=== PATIENT | male | born 1990 | race Caucasian/White ===

== ENCOUNTER 2018-01-13 17:42 | Inpatient (IN) | payer MEDICAID ==
[2018-01-13 18:45] LABS: BASO # 0.1 K/uL (0.0-0.2); BASO % 0.9 % (0.0-2.0); EOS # 0.4 K/uL (0.0-0.7); EOS % 4.5 % (0.0-4.0); LYMPH # 3.1 K/uL (1.0-4.3); MEAN CELL VOLUME 78.4 fL (80.0-94.0); MEAN CORPUSCULAR HEMOGLOBIN 26.5 pg (27.0-31.0); MEAN CORPUSCULAR HGB CONC 33.8 g/dL (33.0-37.0); MEAN PLATELET VOLUME 7.8 fL (7.2-11.7); MONO # 0.8 K/uL (0.0-0.8); MONO % 9.4 % (0.0-10.0); NEUT % 48.2 % (50.0-75.0); NRBC % 0.2 % (0.0-2.0); RBC 4.53 Mil/uL (4.40-5.90); RED CELL DISTRIBUTION WIDTH 15.3 % (11.5-14.5); WHITE BLOOD COUNT 8.2 K/uL (4.8-10.8)
[2018-01-13 19:07] LABS: ALBUMIN 4.1 g/dL (3.5-5.0); ALT/SGPT 17 U/L (21-72); AST/SGOT 41 U/L (17-59); BLOOD UREA NITROGEN 12 mg/dL (9-20); GFR AFRICAN-AMERICAN > 60; GFR NON-AFRICAN AMERICAN > 60
[2018-01-13 20:30] LABS: URINE BILIRUBIN NEGATIVE (NEGATIVE); URINE BLOOD 1+ (NEGATIVE); URINE CLARITY Clear (Clear); URINE COLOR Yellow (YELLOW); URINE GLUCOSE (UA) NORMAL (Normal); URINE LEUKOCYTE ESTERASE NEG Leu/uL (Negative); URINE PROTEIN NEGATIVE (NEGATIVE); URINE UROBILINOGEN NORMAL mg/dL (0.2-1.0)
[2018-01-13 20:31] LABS: SQUAMOUS EPITHIAL 5 /hpf (0-5)
[2018-01-13 20:45] LABS: BARBITURATES, UR NEGATIVE (NEGATIVE); BENZODIAZEPINES, UR NEGATIVE (NEGATIVE); PHENCYCLIDINE, UR NEGATIVE (NEGATIVE)
[2018-01-13 20:49] LABS: OPIATES, UR POSITIVE (NEGATIVE)
--- NOTE | 2018-01-13 21:43 | C.PDOC ---
History Of Present Illness 27yo male (prescreened), presents to ER requesting detox from heroin use. Patient states he uses 2 bundles of heroin IV daily and also occasional alcohol. He denies any medical complaints. He denies any suicidal or homicidal ideation. Time Seen by Provider: 01/13/18 18:15 Chief Complaint (Nursing): Substance Abuse History Per: Patient History/Exam Limitations: no limitations Onset/Duration Of Symptoms: Days Modifying Factor(s): Narcotics Past Medical History Reviewed: Historical Data, Nursing Documentation, Vital Signs Vital Signs: Last Vital Signs Temp 97.7 F 01/13/18 21:36 Pulse 97 H 01/13/18 21:36 Resp 18 01/13/18 21:36 BP 104/67 01/13/18 21:36 Pulse Ox 99 01/13/18 21:44 - Medical History PMH: Anxiety, Depression Denies: Diabetes, Hepatitis, HIV, HTN, Seizures, Sexually Transmitted Disease Surgical History: No Surg Hx - [facility] DETOXIFICATION SERVICES FOR SUBSTANCE ABUSE TREATMENT (11/08/15) Family History: States: Unknown Family Hx - Social History Hx Tobacco Use: Yes Hx Alcohol Use: Yes Hx Substance Use: Yes (IVDU heroin and cocaine) - Immunization History Hx Tetanus Toxoid Vaccination: No Hx Influenza Vaccination: No Review Of Systems Except As Marked, All Systems Reviewed And Found Negative. Constitutional: Negative for: Fever, Chills Cardiovascular: Negative for: Chest Pain Psych: Negative for: Suicidal ideation Physical Exam - Physical Exam Appears: Non-toxic, No Acute Distress Skin: Warm, Dry Head: Atraumatic, Normacephalic Neck: Normal ROM, Supple Chest: Symmetrical Cardiovascular: Rhythm Regular Respiratory: Normal Breath Sounds, No Wheezing Gastrointestinal/Abdominal: Soft, No Tenderness Back: Normal Inspection Extremity: Normal ROM, No Deformity, Other (healing track rankin noted to bilateral forearms) Neurological/Psych: Oriented x3 ED Course And Treatment - Laboratory Results Result Diagrams: 01/13/18 18:39 01/13/18 18:39 O2 Sat by Pulse Oximetry: 99 (RA) Pulse Ox Interpretation: Normal Progress Note: Patient seen and evaluated by crisis team. Labs reviewed and within normal limits; patient medically cleared for admission. Disposition - Disposition Disposition: HOSPITALIZED Disposition Time: 20:50 Condition: STABLE - Clinical Impression Clinical Impression: Drug dependence - Scribe Statement The provider has reviewed the documentation as recorded by the Scribe (Celeste Ya) Provider Attestation: All medical record entries made by the Johnyibe were at my direction and personally dictated by me. I have reviewed the chart and agree that the record accurately reflects my personal performance of the history, physical exam, medical decision making, and the department course for this patient. I have also personally directed, reviewed, and agree with the discharge instructions and disposition.
--- NOTE | 2018-01-13 22:28 | PCM.BM ---
<GuanakitoRuthy - Last Filed: 01/13/18 22:27> Treatment Plan Problems - Problems identified on initial assessmt Potential for alcohol withdrawal Date Initiated: 01/13/18 Time Initiated: 22:27 Assessment reference: NA Priority: 1 Potential for opiate withdrawal Date Initiated: 01/13/18 Time Initiated: 22:27 Assessment reference: NA Status: Active Priority: 2 Treatment assets and liabiliti Patient Assests: cooperative, ADL independent, negotiates basic needs, cognitively intact Patient Liabilities: poor support system, substance abuse (ETOH,opiates) - Milieu Protocol Maintain good personal hygiene: daily Encourage regular showers, daily Remind patient to perform daily oral care, daily Assist patient to perform ADL's Conduct patient checks and document Observation sheet: Q15 minutes Maintain personal safety: every shift Educate patient to report safety concerns to staff, every shift Monitor environment for contraband/sharps Medication safety: Monitor for expected outcome, potential side effects: every shift, Assess barriers to learning: every shift, Assess readiness for medication education: every shift <Haylie Mae - Last Filed: 01/14/18 23:26> - Diagnosis (1) Opiate dependence Status: Acute Interventions: 01/14/18 23:26 * Assess 7x/week regarding severity of withdrawal * Educate regarding risks, benefits, side effects and alternatives of medications * Use Motivational Interviewing for abstinence * Use CBT for relapse prevention * Medication management for withdrawal symptoms * Encourage medication assisted treatment * <Marizol Arambula - Last Filed: 01/15/18 11:43> Family Contact Family involvement: Famliy/SO not involved - Goals for Treatment Patient goals for treatment: Complete detox and discuss aftercare options with counseling staff. Discharge/Continuing Care - Education Needs Education Needs: Patient Medication, Patient Diagnosis/Disease Process, Patient Coping Skills, Patient Anger Management skills, Patient Placement options, Patient Community resources - Discharge Discharge Criteria: No longer exhibiting s/s of withdrawal, Reduction of target symptoms Discharge to:: Home - Treatment Team Participation Patient/Family/SO Statement: 01/15/18 11:43 "I don't know what I wanna do..." Discussed with Family/SO: No Was Patient/Family/SO present at Treatment Team Meeting: Yes
[2018-01-14] MEDS ORDERED: Benzocaine/Menthol (Cepacol) Lozenge PO PRN (00:18)
[2018-01-14] MEDS ORDERED: Aluminum Hydroxide/Magnesium Hydroxide Susp (30 mL) PO PRN (00:18)
[2018-01-14 06:10] VITALS: O2SAT 100
[2018-01-14] MEDS: Multiple Vitamins Tab PO SCH (09:53)
--- NOTE | 2018-01-14 11:49 | PCM.PSYCH ---
Initial Psychiatric Evaluation - Initial Psychiatric Evaluation Type of Admission: Voluntary Legal Status: Capacity Chief Complaint (in patient's own words): "I'm withdrawing" History of Present Illness and Precipitating Events: The patient is seen, chart reviewed and case discussed. Heis known from previous admission. This is a 27-year-old male, single, no child, living with his girlfriend in [place], unemployed. The patient admits to using 15 to 30 bags of heroin IV, for the past 5 years. He says he relapsed last year when he lost his brother. He also uses cocaine and cannabis on and off. He also drinks alcohol which has increased and now almost one lt. daily. He denies DTs or seizures. No history of methadone or Suboxone. He says he is interested in rehabilitation. He has an extensive legal history with many arrests for selling, asault and even contempt to court. Past psychiatric history: He claims he was suffering from anxiety and diagnosed with ADHD. He was given Adderall and Xanax in the past. He was admitted once for aggressive bhv Family psychiatric history: Denies Medical history: Denies Current Medications: Active Medications Generic Name Dose Route Start Last Admin Trade Name Freq PRN Reason Stop Dose Admin Acetaminophen 650 mg 01/14/18 00:18 Tylenol 325mg Tab PO Q4H PRN Fever greater than 101 F Al Hydrox/Mg Hydrox/Simethicone 30 ml 01/14/18 00:18 Maalox 30 Ml PO TID PRN Indigestion / Heartburn Benzocaine/Menthol 1 harry 01/14/18 00:18 Cepacol Sore Throat PO QID PRN Sore Throat Chlordiazepoxide 25 mg 01/14/18 00:18 01/14/18 09:56 Librium PO 25 mg Q4H PRN Administration Alcohol Withdrawal Clonidine HCl 0.1 mg 01/14/18 00:18 Catapres PO Q8 PRN COWS Score More or Equal to 5 Folic Acid 1 mg 01/14/18 10:00 01/14/18 09:53 Folic Acid PO Not Given DAILY MALINA Hydroxyzine HCl 25 mg 01/14/18 00:19 Atarax PO Q6 PRN Agitation Loperamide HCl 2 mg 01/14/18 00:18 Imodium PO Q8 PRN Diarrhea Methadone HCl 0 mg 01/15/18 10:00 Methadone PO 01/20/18 09:59 Q24H MALINA Taper Multivitamins 1 tab 01/14/18 10:00 01/14/18 09:53 Hexavitamin PO Not Given DAILY [facility] Nicotine 1 patch 01/13/18 20:51 01/13/18 20:55 Nicoderm Cq TD Not Given DAILY MALINA Ondansetron HCl 4 mg 01/14/18 00:18 Zofran Tab PO Q8 PRN Nausea/Vomiting Pseudoephedrine HCl 60 mg 01/14/18 00:18 Sudafed Tab PO QID PRN Nasal/Sinus Congestion Thiamine HCl 100 mg 01/14/18 10:00 01/14/18 09:53 Vitamin B1 Tab PO Not Given DAILY MALINA Trazodone HCl 50 mg 01/14/18 00:18 Desyrel PO HS PRN Insomnia Past Psychiatric History - Past Psychiatric History Previous Treatment History: Inpatient Pertinent Medical Hx (Current Medical&Sleep Prob, Allergies): Allergies Allergy/AdvReac Type Severity Reaction Status Date / Time No Known Allergies Allergy Verified 11/08/15 17:09 No Known Home Med 01/13/18 Review of Systems - Gastrointestinal Gastrointestinal: Abdominal Pain - Neurological Neurological: UNREMARKABLE - Psychiatric Psychiatric: Abnormal Sleep Pattern, Anxiety, Difficulty Concentrating, Irritability. absent: Depression, Hallucinations, Homicidal Ideation, Panic Attacks, Suicidal Ideation Mental Status Examination - Personal Presentation Personal Presentation: Looks stated age - Affect Affect: Constricted - Motor Activity Motor Activity: Other (restless due to withdrawal) - Reliability in Providing Information Reliability in Providing Information: Good - Speech Speech: Organized - Mood Mood: Anxious - Formal Thought Process Formal Thought Process: No Impairment - Cognitive Functions Orientation: Person, Place, Situation, Time Attention/Concentration: Attentive Estimate of Intelligence: Average Memory: Recent intact, as evidence by: Ability to recall events of the day, Remote intact, as evidenced by: Abilit to recall sig. life events - Risk Risk: Withdrawal, Diminished functioning - Strength & Assets Inventory Strength & Assets Inventory: Cooperative - Limitations Limitations: Other DSM 5 DX - DSM 5 DSM 5 Diagnosis: Opioid use disorder, severe Opioid withdrawal Alcohol use disorder, severe Alcohol withdrawal Cocaine use disorder, moderate Cannabis use d/o - moderate - Recommended/Plan of Treatment Treatment Recommendations and Plan of Treatment: Opioid use disorder: -Methadone detox -When necessary medications -Attend groups and activities -Support and psychoeducation, relapse prevention skills -Use [facility] for abstinence and aftercare -Consider maintenance medications Alcohol use disorder: -Librium detox -Monitor symptoms -When necessary medications -Use [facility] for abstinence Cocaine/Cannabis use disorder: -Monitor symptoms -Consider gabapentin -Use [facility] for abstinence and good aftercare 34 min Projected ELOS: 5-6 days Prognosis: good w treatment - Smoking Cessation Smoking Cessation Initiated: Yes
[2018-01-14 18:57] VITALS: RESP 18
[2018-01-15] MEDS: Multiple Vitamins Tab PO SCH (09:11)
[2018-01-15 10:17] VITALS: BP 107/68; PULSE 99; TEMP 97.8
--- NOTE | 2018-01-15 11:32 | PCM.PYCHDC ---
Mental Status Examination - Mental Status Examination Orientation: Person Discharge Summary - Discharge Note Consultations:: List each consultation separately and include: 1. Reason for request. 2. Findings. 3. Follow-up Summary of Hospital Course include:: 1. Description of specific treatment plan utilized for patients during their course of treatmen. 2. Summarize the time- course for resolution of acute symptoms and/or regressed behaviors. 3. Describe issues identified and worked on during hospitalization. 4. Describe medication utilized. 5. Describe medical problems identified and treated. 6. Reassessment of suicide risk Summary of Hospital Course: The patient is seen, chart reviewed and case discussed. Heis known from previous admission. This is a 27-year-old male, single, no child, living with his girlfriend in [place], unemployed. The patient admits to using 15 to 30 bags of heroin IV, for the past 5 years. He says he relapsed last year when he lost his brother. He also uses cocaine and cannabis on and off. He also drinks alcohol which has increased and now almost one lt. daily. He denies DTs or seizures. No history of methadone or Suboxone. He says he is interested in rehabilitation. He has an extensive legal history with many arrests for selling, asault and even contempt to court. Past psychiatric history: He claims he was suffering from anxiety and diagnosed with ADHD. He was given Adderall and Xanax in the past. He was admitted once for aggressive bhv Family psychiatric history: Denies Medical history: Denies - Diagnosis (1) Opiate dependence Current Visit: No Status: Acute - Final Diagnosis (DSM 5) Condition upon Discharge: STABLE Disposition: HOME/ ROUTINE Follow-up Treatment Plan: Opioid use disorder: -Methadone detox -When necessary medications -Attend groups and activities -Support and psychoeducation, relapse prevention skills -Use [facility] for abstinence and aftercare -Consider maintenance medications Alcohol use disorder: -Librium detox -Monitor symptoms -When necessary medications -Use UT for abstinence Cocaine/Cannabis use disorder: -Monitor symptoms -Consider gabapentin -Use [facility] for abstinence and good aftercare 34 min
== END 2018-01-15 11:59 | disposition left against medical advice (07) | DRG 743 ==
LOC: C.ER 17:42 → C.7D 21:03
PROVIDERS: ADMIT Psychiatry & Neurology Psychiatry; ATTEND Psychiatry & Neurology Psychiatry
PROC: HZ2ZZZZ Detoxification Services for Substance Abuse Treatment (ICD-10-PCS; principal; 2018-01-13)
PROC: HZ56ZZZ Individual Psychotherapy for Substance Abuse Treatment, Psychoeducation (ICD-10-PCS; 2018-01-13)
PROC: HZ59ZZZ Individual Psychotherapy for Substance Abuse Treatment, Supportive (ICD-10-PCS; 2018-01-13)
PROC: HZ46ZZZ Group Counseling for Substance Abuse Treatment, Psychoeducation (ICD-10-PCS; 2018-01-13)
DX: F11.23 Opioid dependence with withdrawal (principal); F10.230 Alcohol dependence with withdrawal, uncomplicated; F12.10 Cannabis abuse, uncomplicated; F14.10 Cocaine abuse, uncomplicated; F17.210 Nicotine dependence, cigarettes, uncomplicated; Y90.0 Blood alcohol level of less than 20 mg/100 ml